=== PATIENT | male | born 1955 | race Caucasian/White ===

== ENCOUNTER → 2021-05-17 | Outpatient (CLI) | payer MEDICARE | LOC: COL.RAD 09:19 | DX: Z13.6 Encounter for screening for cardiovascular disorders (principal); Z87.891 Personal history of nicotine dependence ==

== ENCOUNTER → 2022-05-21 | Outpatient (CLI) | payer MEDICARE | LOC: COL.RAD 06:47 | DX: I71.4 Abdominal aortic aneurysm, without rupture (principal) ==